=== PATIENT | male | born 1930 | race Caucasian/White ===

== ENCOUNTER 2019-01-23 00:36 | Inpatient (IN) | payer MEDICARE, OTHER ==
[~2019-01-23] VITALS: Ht 167.6 cm; Wt 91.5 kg
[2019-01-23] MEDS ORDERED: INSLAN SQ (01:11)
[2019-01-23] MEDS ORDERED: FERR-82 PO (01:11)
[2019-01-23] MEDS ORDERED: DOCU100C34 PO (01:11)
[2019-01-23] MEDS ORDERED: BUME1TAB12 PO (01:11)
[2019-01-23] MEDS ORDERED: METO100T14 PO (01:11)
[2019-01-23] MEDS ORDERED: DUTA.5 PO (01:11)
[2019-01-23] MEDS ORDERED: ATOR10TA69 PO (01:11)
[2019-01-23] MEDS ORDERED: PANT20TA12 PO (01:11)
[2019-01-23] MEDS ORDERED: LOSA50TA2 PO (01:11)
[2019-01-23] MEDS ORDERED: INSNOV SQ (01:11)
[2019-01-23] MEDS ORDERED: AMLO5TAB66 PO (01:11)
[2019-01-23] MEDS ORDERED: APIX2.5T PO (01:11)
[2019-01-23] MEDS ORDERED: HYDR100T28 PO (01:11)
[2019-01-23] MEDS ORDERED: AMIO200T5 PO (01:11)
[2019-01-23] MEDS ORDERED: PYRI180T PO (01:11)
[2019-01-23] MEDS ORDERED: LEVO175T9 PO (01:11)
[2019-01-23] MEDS ORDERED: TEMA15CA PO (01:11)
[2019-01-23] MEDS ORDERED: ONDA4AMP IV (01:11)
[2019-01-23 01:22] LABS: BASOPHILS % (AUTO) 3.5 % (0.0-2.0); EOSINOPHILS % (AUTO) 3.2 % (1.0-6.0); HEMATOCRIT 32.4 % (41-53); HEMOGLOBIN 10.1 g/dL (13.5-17.5); LYMPHOCYTES # (AUTO) 1.1 K/uL (1.0-4.8); LYMPHOCYTES % (AUTO) 16.2 % (22.0-44.0); MEAN CORPUSCULAR HEMOGLOBIN 29.8 pg (26.0-34.0); MEAN CORPUSCULAR HGB CONC 31.3 G/dL (31.0-37.0); MEAN CORPUSCULAR VOLUME 95 fL (80-100); MONOCYTES # (AUTO) 0.6 K/uL (0.1-1.0); NEUTROPHILS # (AUTO) 4.8 K/uL (1.8-7.7); NEUTROPHILS % (AUTO) 69.1 % (40.0-70.0); PLATELET COUNT (AUTO) 319 K/uL (150-450); RED CELL DISTRIBUTION WIDTH 16.1 % (11.5-14.5)
[2019-01-23 01:38] LABS: LACTIC ACID 1.2 mmol/L (0.4-2.0)
[2019-01-23 01:43] LABS: CALCIUM, TOTAL 8.7 mg/dL (8.8-10.5); CREATININE 2.39 mg/dL (0.60-1.30)
[2019-01-23 01:44] LABS: AMMONIA < 10 umol/L (11-32); TROPONIN I 0.03 ng/mL (0.00-0.05)
[2019-01-23 01:47] LABS: BILIRUBIN,TOTAL 0.3 mg/dL (0.1-1.0); TOTAL PROTEIN, SERUM 6.5 g/dL (6.4-8.2)
[2019-01-23 02:10] LABS: ABG A-A DIFF O2 186.9 mmHg (10-20.0); ABG CARBOXYHEMOGLOBIN 0.8 % (0.0-1.5); ABG HCO3 23.6 mmol/L (22.0-26.0); ABG METHEMOGLOBIN 0.3 % (0.0-1.5); ABG OXYGEN CONTENT 14.1 mL/dL (15.0-23.0); ABG OXYGEN SATURATION 96.1 % (95.0-98.0); ABG PCO2 43 mmHg (35-45); ABG TOTAL HEMOGLOBIN 10.5 G/dL (12.0-18.0); PO2, ARTERIAL BG 85.2 mmHg (71.0-79.0); SOURCE, BLOOD GAS ARTERIAL; TEMPERATURE, FAHRENHEIT, BG 98.6 FAHREN (96.0-98.6)
[2019-01-23 02:11] LABS: SITE, BLOOD GAS RT RADIAL
[2019-01-23 02:12] LABS: O2 DEVICE,BLOOD GAS BIPAP (ROOM AIR)
[2019-01-23] MEDS ORDERED: FUROSEMIDE 40 MG/4 ML VIAL IVP ONE (02:30)
[2019-01-23] MEDS ORDERED: LEVOFLOXACIN 750 MG/D5% WATER 150 ML IV ONE (02:30)
[2019-01-23] MEDS ORDERED: ONDANSETRON HCL 4 MG/2 ML VIAL IVP PRN ×2 (03:30→04:30)
[2019-01-23] MEDS ORDERED: 0.9% SODIUM CHLORIDE 10 ML SYRINGE IVP PRN (03:30)
[2019-01-23] MEDS ORDERED: ACETAMINOPHEN 325 MG TABLET PO PRN ×2 (03:30→04:30)
[2019-01-23 03:48] LABS: INFLUENZA TYPE A NEGATIVE FOR TYPE A (NEGATIVE); INFLUENZA TYPE B NEGATIVE FOR TYPE B (NEGATIVE)
[2019-01-23] MEDS ORDERED: ZOLPIDEM TARTRATE 5 MG TABLET PO PRN (04:30)
[2019-01-23] MEDS ORDERED: BISACODYL 10 MG RECTAL RECTAL SUPPOSITORY PR PRN (04:30)
[2019-01-23] MEDS ORDERED: HydrALAZINE HCL 20 MG/ML VIAL IVP PRN (04:30)
[2019-01-23] MEDS ORDERED: ALBUTEROL SULFATE 2.5 MG/0.5 ML NEB SOLUTION NEB PRN (04:30)
[2019-01-23] MEDS ORDERED: MAGNESIUM HYDROXIDE SUSPENSION 30 ML UDCUP PO PRN (04:30)
[2019-01-23] MEDS ORDERED: MORPHINE SULFATE 2 MG/ML SYRINGE IVP PRN (04:30)
[2019-01-23] MEDS ORDERED: HYDROCODONE/ACETAMINOPHEN 5-325 MG TABLET PO PRN (04:30)
[2019-01-23 04:55] LABS: GLUCOSE,POINT OF CARE 141 MG/DL (70-110)
[2019-01-23 05:57] VITALS: BP 113/55
[2019-01-23] MEDS: LEVOTHYROXINE SODIUM 50 MCG TABLET PO SCH (06:21)
[2019-01-23 07:42] VITALS: BP 95/49
[2019-01-23] MEDS ORDERED: HEPARIN SODIUM,PORCINE 5,000 UNITS/ML VIAL SQ SCH (08:00)
[2019-01-23] MEDS ORDERED: AmLODIPine BESYLATE 5 MG TABLET PO SCH (09:00)
[2019-01-23] MEDS: METOPROLOL TARTRATE 50 MG TABLET PO SCH ×2 (09:00→20:08)
[2019-01-23] MEDS: BUMETANIDE 0.25 MG/ML 4 ML VIAL IVP SCH ×2 (09:00→21:12)
[2019-01-23] MEDS: INSULIN GLARGINE,HUM.REC.ANLOG 100 UNITS/ML SQ SCH ×2 (09:01→21:14)
[2019-01-23] MEDS: PANTOPRAZOLE SODIUM 40 MG DR TABLET PO SCH (09:03)
[2019-01-23] MEDS: FERROUS SULFATE 325 MG EC TABLET PO SCH ×2 (09:03→17:04)
[2019-01-23] MEDS: ATORVASTATIN CALCIUM 20 MG TABLET PO SCH (09:03)
[2019-01-23] MEDS: DUTASTERIDE 0.5 MG CAPSULE PO SCH (09:03)
[2019-01-23] MEDS: DOCUSATE SODIUM 100 MG CAPSULE PO SCH ×2 (09:04→21:12)
[2019-01-23] MEDS: APIXABAN 2.5 MG TABLET PO SCH ×2 (09:04→21:12)
[2019-01-23] MEDS: AMIODARONE HCL 200 MG TABLET PO SCH (09:05)
[2019-01-23 10:19] LABS: GLUCOMETER DEV NAME(LOC) 5S.1; GLUCOSE,POINT OF CARE 164 MG/DL (70-110)
[2019-01-23 11:21] VITALS: BP 93/45
[2019-01-23 15:36] VITALS: BP 99/50
[2019-01-23 19:46] VITALS: BP 110/55
[2019-01-23] MEDS ORDERED: PYRIDOSTIGMINE BROMIDE 180 MG PO SCH (20:00)
[2019-01-23] MEDS ORDERED: DEXTROSE 50%-WATER 25 GM/50 ML SYRINGE IVP PRN (22:15)
[2019-01-23] MEDS: INSULIN LISPRO 100 UNITS/ML SQ PRN (22:21)
[2019-01-23 23:58] VITALS: BP 104/53
[2019-01-24 01:40] LABS: APPEARANCE,URINE CLOUDY (CLEAR); BILIRUBIN,URINE NEGATIVE (NEGATIVE); GLUCOSE, URINE (UA) NEGATIVE (NEGATIVE); KETONES,URINE NEGATIVE (NEGATIVE); LEUKOCYTE ESTERASE ,URINE MODERATE (NEGATIVE); NITRATE,URINE NEGATIVE (NEGATIVE); OCCULT BLOOD,URINE NEGATIVE (NEGATIVE); PROTEIN,URINE NEGATIVE (NEGATIVE); UROBILINOGEN,URINE 0.2 mg/dL (<=1.0)
[2019-01-24 01:43] LABS: CREATININE,URINE RANDOM 49.3 mg/dL (30.0-125.0)
[2019-01-24 01:46] LABS: AMPHET/METH SCREEN,URINE NEGATIVE (NEGATIVE); BARBITURATE SCREEN, URINE NEGATIVE (NEGATIVE); BENZODIAZEPINES SCREEN,URINE NEGATIVE (NEGATIVE); CANNABINOID SCREEN,URINE NEGATIVE (NEGATIVE); COCAINE SCREEN,URINE NEGATIVE (NEGATIVE); METHADONE SCREEN, URINE NEGATIVE (NEGATIVE); OPIATE SCREEN,URINE POSITIVE (NEGATIVE)
[2019-01-24 01:47] LABS: RBC,URINE 0-2 /HPF (0-2)
[2019-01-24 01:48] LABS: BACTERIA,URINE Many /HPF (None Seen); SQUAMOUS EPITHELIAL CELL,UR Few /LPF (None Seen)
[2019-01-24 01:53] LABS: PHENCYCLIDINE SCREEN,URINE NEGATIVE (NEGATIVE)
[2019-01-24 02:20] LABS: GLUCOMETER DEV NAME(LOC) 5S.1; GLUCOSE,POINT OF CARE 241 MG/DL (70-110)
[2019-01-24 05:16] VITALS: BP 122/55
[2019-01-24] MEDS: LEVOTHYROXINE SODIUM 50 MCG TABLET PO SCH (06:01)
[2019-01-24 07:19] LABS: BASOPHILS % (AUTO) 0.7 % (0.0-2.0); EOSINOPHILS % (AUTO) 5.3 % (1.0-6.0); HEMATOCRIT 28.1 % (41-53); LYMPHOCYTES # (AUTO) 0.9 K/uL (1.0-4.8); LYMPHOCYTES % (AUTO) 17.3 % (22.0-44.0); MEAN CORPUSCULAR HEMOGLOBIN 30.1 pg (26.0-34.0); MEAN CORPUSCULAR VOLUME 94 fL (80-100); MONOCYTES # (AUTO) 0.5 K/uL (0.1-1.0); MONOCYTES % (AUTO) 8.9 % (2.0-9.0); NEUTROPHILS # (AUTO) 3.6 K/uL (1.8-7.7); NEUTROPHILS % (AUTO) 67.8 % (40.0-70.0); PLATELET COUNT (AUTO) 234 K/uL (150-450); RED BLOOD CELL COUNT(AUTO) 2.98 MIL/uL (4.50-5.90); RED CELL DISTRIBUTION WIDTH 16.2 % (11.5-14.5)
[2019-01-24 07:42] LABS: HEMOGLOBIN A1C 5.5 % (4.5-6.2)
[2019-01-24 07:51] LABS: CALCIUM, TOTAL 8.3 mg/dL (8.8-10.5); CREATININE 2.52 mg/dL (0.60-1.30); MAGNESIUM 2.1 mg/dL (1.80-2.40); PHOSPHORUS 4.2 mg/dL (2.5-4.9); POTASSIUM 4.5 mmol/L (3.5-5.1); THYROID STIMULATING HORMONE 4.11 uIU/mL (0.36-3.74)
[2019-01-24 08:19] VITALS: BP 93/47
[2019-01-24] MEDS: ATORVASTATIN CALCIUM 20 MG TABLET PO SCH (08:51)
[2019-01-24] MEDS: DOCUSATE SODIUM 100 MG CAPSULE PO SCH ×2 (08:51→20:25)
[2019-01-24] MEDS: METOPROLOL TARTRATE 50 MG TABLET PO SCH ×3 (08:51→20:25)
[2019-01-24] MEDS: FERROUS SULFATE 325 MG EC TABLET PO SCH ×2 (08:51→17:38)
[2019-01-24] MEDS: DUTASTERIDE 0.5 MG CAPSULE PO SCH (08:51)
[2019-01-24] MEDS: PANTOPRAZOLE SODIUM 40 MG DR TABLET PO SCH (08:52)
[2019-01-24] MEDS: AMIODARONE HCL 200 MG TABLET PO SCH (08:52)
[2019-01-24] MEDS: APIXABAN 2.5 MG TABLET PO SCH ×2 (08:52→20:25)
[2019-01-24] MEDS: BUMETANIDE 0.25 MG/ML 4 ML VIAL IVP SCH ×2 (08:53→20:25)
[2019-01-24 12:01] VITALS: BP 94/43
[2019-01-24] MEDS: INSULIN LISPRO 100 UNITS/ML SQ PRN ×3 (12:02→22:20)
[2019-01-24 12:15] LABS: GLUCOMETER DEV NAME(LOC) 5S.1; GLUCOSE,POINT OF CARE 50 MG/DL (70-110)
[2019-01-24 12:15] LABS: GLUCOMETER DEV NAME(LOC) 5S.1; GLUCOSE,POINT OF CARE 170 MG/DL (70-110)
[2019-01-24 14:48] VITALS: BP 91/46
[2019-01-24 15:10] LABS: GLUCOMETER DEV NAME(LOC) 5N.1; GLUCOSE,POINT OF CARE 185 MG/DL (70-110)
[2019-01-24 15:48] VITALS: BP 104/49
[2019-01-24 19:39] LABS: GLUCOMETER DEV NAME(LOC) 5N.1; GLUCOSE,POINT OF CARE 184 MG/DL (70-110)
[2019-01-24 19:48] VITALS: BP 93/46
[2019-01-24] MEDS: INSULIN GLARGINE,HUM.REC.ANLOG 100 UNITS/ML SQ SCH (22:20)
[2019-01-25] VITALS (7 sets, daily range): BP systolic 96–130; BP diastolic 46–59
[2019-01-25] MEDS: LEVOTHYROXINE SODIUM 50 MCG TABLET PO SCH (06:09)
[2019-01-25] MEDS: INSULIN LISPRO 100 UNITS/ML SQ PRN ×4 (06:20→21:49)
[2019-01-25 08:05] LABS: BASOPHILS % (AUTO) 0.4 % (0.0-2.0); EOSINOPHILS % (AUTO) 7.1 % (1.0-6.0); HEMATOCRIT 26.4 % (41-53); HEMOGLOBIN 8.4 g/dL (13.5-17.5); LYMPHOCYTES # (AUTO) 1.4 K/uL (1.0-4.8); LYMPHOCYTES % (AUTO) 26.3 % (22.0-44.0); MEAN CORPUSCULAR VOLUME 94 fL (80-100); MONOCYTES # (AUTO) 0.4 K/uL (0.1-1.0); MONOCYTES % (AUTO) 8.1 % (2.0-9.0); NEUTROPHILS # (AUTO) 3.2 K/uL (1.8-7.7); NEUTROPHILS % (AUTO) 58.1 % (40.0-70.0); PLATELET COUNT (AUTO) 209 K/uL (150-450); RED BLOOD CELL COUNT(AUTO) 2.81 MIL/uL (4.50-5.90)
[2019-01-25 08:09] LABS: ALBUMIN 2.3 g/dL (3.4-5.0); BILIRUBIN,TOTAL 0.3 mg/dL (0.1-1.0); CALCIUM, TOTAL 8.3 mg/dL (8.8-10.5); CREATININE 2.3 mg/dL (0.60-1.30); MAGNESIUM 2.2 mg/dL (1.80-2.40); PHOSPHORUS 3.9 mg/dL (2.5-4.9); POTASSIUM 4.3 mmol/L (3.5-5.1); TOTAL PROTEIN, SERUM 5.9 g/dL (6.4-8.2)
[2019-01-25 08:31] LABS: GLUCOMETER DEV NAME(LOC) 5N.1; GLUCOSE,POINT OF CARE 221 MG/DL (70-110)
[2019-01-25 08:34] LABS: GLUCOMETER DEV NAME(LOC) 5N.1; GLUCOSE,POINT OF CARE 159 MG/DL (70-110)
[2019-01-25] MEDS: AMIODARONE HCL 200 MG TABLET PO SCH (08:35)
[2019-01-25] MEDS: ATORVASTATIN CALCIUM 20 MG TABLET PO SCH (08:35)
[2019-01-25] MEDS: DUTASTERIDE 0.5 MG CAPSULE PO SCH (08:35)
[2019-01-25] MEDS: PANTOPRAZOLE SODIUM 40 MG DR TABLET PO SCH (08:35)
[2019-01-25] MEDS: FERROUS SULFATE 325 MG EC TABLET PO SCH ×2 (08:35→17:04)
[2019-01-25] MEDS: APIXABAN 2.5 MG TABLET PO SCH ×2 (08:35→20:09)
[2019-01-25] MEDS: DOCUSATE SODIUM 100 MG CAPSULE PO SCH ×2 (08:35→20:09)
[2019-01-25] MEDS: BUMETANIDE 0.25 MG/ML 4 ML VIAL IVP SCH ×2 (08:37→21:00)
[2019-01-25] MEDS: METOPROLOL TARTRATE 50 MG TABLET PO SCH ×2 (08:37→20:10)
[2019-01-25] MEDS: INSULIN GLARGINE,HUM.REC.ANLOG 100 UNITS/ML SQ SCH ×2 (08:46→21:48)
[2019-01-25 12:20] LABS: GLUCOMETER DEV NAME(LOC) 5N.1; GLUCOSE,POINT OF CARE 203 MG/DL (70-110)
[2019-01-25] MEDS: PYRIDOSTIGMINE BROMIDE 60 MG TABLET PO SCH ×2 (17:04→20:09)
[2019-01-26 04:17] VITALS: BP 112/54
[2019-01-26 04:35] LABS: GLUCOMETER DEV NAME(LOC) 5N.1; GLUCOSE,POINT OF CARE 165 MG/DL (70-110)
[2019-01-26 04:35] LABS: GLUCOMETER DEV NAME(LOC) 5N.1; GLUCOSE,POINT OF CARE 243 MG/DL (70-110)
[2019-01-26] MEDS: LEVOTHYROXINE SODIUM 50 MCG TABLET PO SCH (06:25)
[2019-01-26 06:26] LABS: ALBUMIN 2.5 g/dL (3.4-5.0); BILIRUBIN,TOTAL 0.4 mg/dL (0.1-1.0); CALCIUM, TOTAL 8.6 mg/dL (8.8-10.5); CREATININE 2.14 mg/dL (0.60-1.30); MAGNESIUM 2.5 mg/dL (1.80-2.40); PHOSPHORUS 3.7 mg/dL (2.5-4.9); POTASSIUM 4.4 mmol/L (3.5-5.1); TOTAL PROTEIN, SERUM 6.4 g/dL (6.4-8.2)
[2019-01-26 06:58] LABS: HEMATOCRIT 27.8 % (41-53); HEMOGLOBIN 9.1 g/dL (13.5-17.5); LYMPHOCYTES % (AUTO) 27.4 % (22.0-44.0); MEAN CORPUSCULAR HEMOGLOBIN 30.9 pg (26.0-34.0); MEAN CORPUSCULAR HGB CONC 32.7 G/dL (31.0-37.0); MEAN CORPUSCULAR VOLUME 95 fL (80-100); NEUTROPHILS # (AUTO) 3.4 K/uL (1.8-7.7); NEUTROPHILS % (AUTO) 56.6 % (40.0-70.0); PLATELET COUNT (AUTO) 246 K/uL (150-450); RED BLOOD CELL COUNT(AUTO) 2.94 MIL/uL (4.50-5.90); RED CELL DISTRIBUTION WIDTH 16.4 % (11.5-14.5)
[2019-01-26 06:59] LABS: LYMPHOCYTES # (AUTO) 1.6 K/uL (1.0-4.8); MONOCYTES # (AUTO) 0.4 K/uL (0.1-1.0)
[2019-01-26 07:31] VITALS: BP 115/55
[2019-01-26 08:04] LABS: GLUCOMETER DEV NAME(LOC) 5N.1; GLUCOSE,POINT OF CARE 109 MG/DL (70-110)
[2019-01-26] MEDS: BUMETANIDE 0.25 MG/ML 4 ML VIAL IVP SCH (08:31)
[2019-01-26] MEDS: FERROUS SULFATE 325 MG EC TABLET PO SCH ×2 (08:31→17:28)
[2019-01-26] MEDS: APIXABAN 2.5 MG TABLET PO SCH (08:32)
[2019-01-26] MEDS: DOCUSATE SODIUM 100 MG CAPSULE PO SCH ×2 (08:32→21:00)
[2019-01-26] MEDS: ATORVASTATIN CALCIUM 20 MG TABLET PO SCH (08:32)
[2019-01-26] MEDS: DUTASTERIDE 0.5 MG CAPSULE PO SCH (08:32)
[2019-01-26] MEDS: AMIODARONE HCL 200 MG TABLET PO SCH (08:33)
[2019-01-26] MEDS: PYRIDOSTIGMINE BROMIDE 60 MG TABLET PO SCH ×2 (08:33→16:34)
[2019-01-26] MEDS: PANTOPRAZOLE SODIUM 40 MG DR TABLET PO SCH (08:35)
[2019-01-26] MEDS: INSULIN GLARGINE,HUM.REC.ANLOG 100 UNITS/ML SQ SCH (08:41)
[2019-01-26] MEDS: METOPROLOL TARTRATE 50 MG TABLET PO SCH (09:00)
[2019-01-26 09:45] LABS: GLUCOMETER DEV NAME(LOC) 5N.1; GLUCOSE,POINT OF CARE 118 MG/DL (70-110)
[2019-01-26 11:07] VITALS: BP 128/56
[2019-01-26 15:33] VITALS: BP 128/62
[2019-01-26] MEDS: INSULIN LISPRO 100 UNITS/ML SQ PRN (17:27)
[2019-01-26 18:20] LABS: GLUCOMETER DEV NAME(LOC) 5N.1; GLUCOSE,POINT OF CARE 227 MG/DL (70-110)
[2019-01-26 19:33] VITALS: BP 116/52
[2019-01-26 23:48] VITALS: BP 127/55
[2019-01-27] MEDS: BUMETANIDE 1 MG TABLET PO SCH ×2 (00:01→08:01)
[2019-01-27] MEDS: PYRIDOSTIGMINE BROMIDE 60 MG TABLET PO SCH ×2 (00:02→08:01)
[2019-01-27] MEDS: METOPROLOL TARTRATE 50 MG TABLET PO SCH ×2 (00:02→09:00)
[2019-01-27] MEDS: APIXABAN 2.5 MG TABLET PO SCH ×2 (00:02→08:01)
[2019-01-27] MEDS: INSULIN GLARGINE,HUM.REC.ANLOG 100 UNITS/ML SQ SCH ×2 (00:04→08:03)
[2019-01-27 05:16] VITALS: BP 108/61
[2019-01-27 05:47] LABS: CALCIUM, TOTAL 8.6 mg/dL (8.8-10.5); CREATININE 1.85 mg/dL (0.60-1.30); MAGNESIUM 2.3 mg/dL (1.80-2.40); POTASSIUM 4.1 mmol/L (3.5-5.1)
[2019-01-27] MEDS: LEVOTHYROXINE SODIUM 50 MCG TABLET PO SCH (06:45)
[2019-01-27 07:39] VITALS: BP 133/66
[2019-01-27] MEDS: ATORVASTATIN CALCIUM 20 MG TABLET PO SCH (08:01)
[2019-01-27] MEDS: DOCUSATE SODIUM 100 MG CAPSULE PO SCH (08:01)
[2019-01-27] MEDS: DUTASTERIDE 0.5 MG CAPSULE PO SCH (08:01)
[2019-01-27] MEDS: FERROUS SULFATE 325 MG EC TABLET PO SCH (08:01)
[2019-01-27] MEDS: AMIODARONE HCL 200 MG TABLET PO SCH (08:01)
[2019-01-27] MEDS: PANTOPRAZOLE SODIUM 40 MG DR TABLET PO SCH (08:01)
[2019-01-27] MEDS ORDERED: PYRI60TA PO (10:55)
[2019-01-27 11:32] VITALS: BP 114/57
[2019-01-27 20:04] LABS: GLUCOMETER DEV NAME(LOC) 5N.1; GLUCOSE,POINT OF CARE 153 MG/DL (70-110)
[2019-01-27 20:05] LABS: GLUCOMETER DEV NAME(LOC) 5N.1; GLUCOSE,POINT OF CARE 120 MG/DL (70-110)
[2019-01-27 20:05] LABS: GLUCOMETER DEV NAME(LOC) 5N.1; GLUCOSE,POINT OF CARE 134 MG/DL (70-110)
[2019-01-27 20:05] LABS: GLUCOMETER DEV NAME(LOC) 5N.1; GLUCOSE,POINT OF CARE 137 MG/DL (70-110)
[2019-01-28 17:44] LABS: GLUCOMETER DEV NAME(LOC) 5S.2; GLUCOSE,POINT OF CARE 166 MG/DL (70-110)
== END 2019-01-27 15:00 | disposition home or self-care (01) | DRG 682 ==
LOC: EMS 00:39 → 5S 03:29
PROVIDERS: ADMIT Internal Medicine; ATTEND Internal Medicine
PROC: 5A09357 Assistance with Respiratory Ventilation, Less than 24 Consecutive Hours, Continuous Positive Airway Pressure (ICD-10-PCS; principal; 2019-01-23)
DX: N17.9 Acute kidney failure, unspecified (principal); J96.01 Acute respiratory failure with hypoxia; I50.33 Acute on chronic diastolic (congestive) heart failure; I13.0 Hypertensive heart and chronic kidney disease with heart failure and stage 1 through stage 4 chronic kidney disease, or unspecified chronic kidney disease; J90 Pleural effusion, not elsewhere classified; N18.9 Chronic kidney disease, unspecified; I48.2 Chronic atrial fibrillation; E11.22 Type 2 diabetes mellitus with diabetic chronic kidney disease; K21.9 Gastro-esophageal reflux disease without esophagitis; S82.839A Other fracture of upper and lower end of unspecified fibula, initial encounter for closed fracture; E78.5 Hyperlipidemia, unspecified; D63.1 Anemia in chronic kidney disease; I07.1 Rheumatic tricuspid insufficiency; Z79.01 Long term (current) use of anticoagulants; E03.9 Hypothyroidism, unspecified; S82.831A Other fracture of upper and lower end of right fibula, initial encounter for closed fracture; W01.0XXA Fall on same level from slipping, tripping and stumbling without subsequent striking against object, initial encounter; Y93.89 Activity, other specified; Z83.3 Family history of diabetes mellitus; Z82.49 Family history of ischemic heart disease and other diseases of the circulatory system; Y92.89 Other specified places as the place of occurrence of the external cause; Y99.8 Other external cause status; Z79.4 Long term (current) use of insulin; Z79.899 Other long term (current) drug therapy
CPT/HCPCS: 29515; 76770; 82570; 82805; 83036; 83605; 83735; 84100; 84300; 84443; 84540; 87040; 87081; 87086; 87804; 92610; 93005; 93306; 94660; 96365; 97162; 97530; 97535; G0378; J1815; J1940; J1956; J3490